=== PATIENT | male | born 1980 | race Caucasian/White ===

== ENCOUNTER 2020-04-16 10:37 | Outpatient (REF) | payer MEDICAID, SELFPAY | END 2020-04-16 10:38 | disposition home or self-care (01) | LOC: HO.LAB 10:37 | PROVIDERS: Visit Provider Internal Medicine | DX: Z20.828 Contact with and (suspected) exposure to other viral communicable diseases (principal) | CPT/HCPCS: C9803; U0003 ==

== ENCOUNTER 2020-05-14 15:06 | Outpatient (REF) | payer MEDICAID, SELFPAY | END 2020-05-14 15:07 | disposition home or self-care (01) | LOC: HO.LAB 15:06 | PROVIDERS: Visit Provider Internal Medicine | DX: Z20.822 Contact with and (suspected) exposure to COVID-19 (principal) | CPT/HCPCS: 36415; C9803; U0003 ==

== ENCOUNTER 2020-05-28 13:17 | Outpatient (REF) | payer MEDICAID, SELFPAY | END 2020-05-28 13:18 | disposition home or self-care (01) | LOC: HO.LAB 13:17 | PROVIDERS: Visit Provider Internal Medicine | DX: Z20.822 Contact with and (suspected) exposure to COVID-19 (principal) | CPT/HCPCS: 36415; C9803; U0003 ==

== ENCOUNTER 2020-08-03 16:22 | Emergency (ER) | payer MEDICAID, SELFPAY ==
--- NOTE | ~2020-08-03 | XR_ITS ---
EXAMINATION: XR FINGER, RIGHT CLINICAL INFORMATION: Status post injury to the right ring finger COMPARISON: None TECHNIQUE: PA view of the right hand, oblique and lateral views of the right hand fourth digit. FINDINGS: There is no evidence of acute fracture or dislocation. Bones and joints are unremarkable. No evidence of from radiopaque foreign body or soft tissue air. XR/XR finger RT min 2V IMPRESSION: No evidence of acute fracture or dislocation in the right hand fourth digit.
[2020-08-03 16:37] VITALS: BP 145/84; PULSE 70; RESP 16; TEMP 36.7; O2SAT 99; BMI 28.8
--- NOTE | 2020-08-03 17:59 | ED_ITS ---
HPI - Extremity Problem General Chief complaint: Extremity Problem Stated complaint: Finger injury R hand Time Seen by Provider: 08/03/20 17:56 History of Present Illness HPI Narrative: Patient complains of right ring finger pain and inability to straighten it at the last joint after a tool slipped and he banged into the metal while working on his car, no numbness weakness or tingling Related Data Allergies Allergy/AdvReac Type Severity Reaction Status Date / Time No Known Allergies Allergy Verified 08/03/20 17:38 [No Known Allergies*] Review of Systems Review of Systems: Positive for right pinky finger pain Negatives are no numbness weakness or tingling, no other injure Yes all other systems are reviewed and are negative [facility] Past Medical History Source: nursing notes reviewed Physical Exam Vital Signs: Vital Signs: Last Vital Signs Temp 98.0 F 08/03/20 16:37 Pulse 70 08/03/20 16:37 Resp 16 08/03/20 16:37 BP 145/84 H 08/03/20 16:37 Pulse Ox 99 08/03/20 16:37 Body Mass Index 28.8 General appearance no acute distress, common cooperative Head is normocephalic atraumatic Neck is supple Respiratory no distress Right pinky finger has some tenderness at the D IP joint there is no laceration it is not swollen, the D IP joint is in a flexed position and he cannot extend it, the PIP joint is normal, skin color is normal and neuro vascular intact distal Course Course Course Narrative: X-ray was normal Patient was advised that he has an injury to the extensor tendon in his finger and that it may need surgical repair and that repair needs to be done relatively soon as it becomes harder and harder over time to bring the tendon together Patient understood this and said he will follow closely with orthopedic A finger splint was applied in mild extension and he was discharged Discharge Plan Discharge Clinical Impression: Injury of extensor tendon of right hand Patient Disposition: Home, Self-Care Additional Instructions: X-ray was normal Your exam shows that you cannot straighten the last joint of her ring finger on the right hand which means the extensor tendon is damaged Follow follow with hand doctor, this may need to be repaired soon if they are going to repair it as the tendon will become harder to find as time goes by the tendon will shrink and be harder to repair, so call the office tomorrow Wear the splint This was discussed with orthopedic physician assistantJacky Referrals: Margarita Chin MD [Physician] - 2 days (Right ring finger DI P extensor tendon injury) Interventions: ED Discharge Assessment Last Done: 08/03/20 18:35 Discharge Date/Time: 08/03/20 18:38
== END 2020-08-03 18:38 | disposition home or self-care (01) ==
PROVIDERS: Emergency Provider Emergency Medicine
DX: S66.304A Unspecified injury of extensor muscle, fascia and tendon of right ring finger at wrist and hand level, initial encounter (principal); W22.8XXA Striking against or struck by other objects, initial encounter; Y93.89 Activity, other specified; Y92.015 Private garage of single-family (private) house as the place of occurrence of the external cause; Y99.9 Unspecified external cause status
CPT/HCPCS: 29125; 73140; 99283; 99284

== ENCOUNTER 2020-09-08 14:18 | Outpatient (REF) | payer MEDICAID, SELFPAY ==
--- NOTE | ~2020-09-08 | XR_ITS ---
EXAMINATION: XR HAND, RIGHT CLINICAL INFORMATION: Pain right hand. COMPARISON: None TECHNIQUE: PA, lateral, and oblique views of the right hand. FINDINGS: The bones and soft tissues are normal. No fracture. Alignment is anatomic. Joint spaces are maintained. No erosions or soft tissue calcifications. XR/XR hand RT min 3V IMPRESSION: Unremarkable right hand exam. Especially there is no abnormality involving the distal fourth digit.
== END 2020-09-08 14:19 | disposition home or self-care (01) ==
LOC: HO.HOSX 14:18
PROVIDERS: Visit Provider Orthopaedic Surgery
DX: M79.641 Pain in right hand (principal)
CPT/HCPCS: 73130; 99202

== ENCOUNTER → 2020-11-10 14:57 | Outpatient (BNVA) | payer MEDICAID, SELFPAY | PROVIDERS: PCP Internal Medicine; Visit Provider Orthopaedic Surgery | DX: M20.011 Mallet finger of right finger(s) (principal) | CPT/HCPCS: 99212 ==